=== PATIENT | male | born 1950 | race Caucasian/White ===

== ENCOUNTER → 2016-11-17 | Outpatient (CLI) | payer OTHER | LOC: LAB 09:13 | DX: R23.3 Spontaneous ecchymoses (principal); R25.2 Cramp and spasm ==

== ENCOUNTER → 2019-09-30 | Outpatient (CLI) | payer OTHER ==
[2019-09-30 10:01] LABS: EOS # 0.4 (0.04-0.40); EOS % 4.2 % (0.0-4.0); HEMATOCRIT 47.9 % (42.0-52.0); HEMOGLOBIN 15.9 g/dL (13.5-18.0); LYMPH# 1.6 (1.50-4.00); MEAN CELL VOLUME 94 fl (78-100); MEAN CORPUSCULAR HEMOGLOBIN 31 pg (27-31); MEAN CORPUSCULAR HGB CONC 33 g/dL (33-37); MONO # 0.8 (0.20-0.80); NEU # 5.7 (1.40-6.50); PLATELET COUNT 251 K/mm3 (130-400); WHITE BLOOD COUNT 8.4 K/mm3 (4.8-10.8)
[2019-09-30 10:35] LABS: POTASSIUM 4.4 mmol/L (3.5-5.1)
[2019-09-30 10:36] LABS: CALCIUM 9.4 mg/dL (8.3-10.5)
[2019-09-30 10:38] LABS: TOTAL PROTEIN 7.4 g/dL (6.2-8.1)
[2019-09-30 10:39] LABS: TOTAL BILIRUBIN 0.8 mg/dL (0.2-1.2)
[2019-09-30 10:44] LABS: MAGNESIUM 2.09 mg/dL (1.60-2.60)
[2019-09-30 11:06] LABS: ERYTHROCYTE SEDIMENTATION RATE 1 mm/hr (0-20)
[2019-09-30 20:54] LABS: TESTOSTERONE 413 ng/dL (221-716)
== END ==
LOC: LAB 09:50
PROVIDERS: Internal Medicine
DX: I10 Essential (primary) hypertension (principal); I61.9 Nontraumatic intracerebral hemorrhage, unspecified; K90.9 Intestinal malabsorption, unspecified; N52.9 Male erectile dysfunction, unspecified

== ENCOUNTER → 2019-11-10 | Outpatient (CLI) | payer OTHER | LOC: CARDREHAB 10:49 → CARDLAB 12:46 | DX: G47.10 Hypersomnia, unspecified (principal); G47.33 Obstructive sleep apnea (adult) (pediatric); G47.8 Other sleep disorders | CPT/HCPCS: G0399 ==

== ENCOUNTER → 2020-09-13 | Outpatient (CLI) | payer OTHER ==
[~2020-09-13] MED LIST: ACETAMINOPHEN650 M4 PO; AMLODIPINE BESYL5 MG PO; CLARITIN 1010 MG/TAB PO; FAMOTIDINE40 M1 PO; FLUOXETINE HCL20 MG PO; FLUTICASON0.05 MG/AC NS; LISINOPRIL10 MG PO; NORCO 325 MG-7.1 TA1 PO; ONDANSETRON HYDR4 MG PO; VALIUM 2MG T2 MG/TAB PO
[2020-09-13 15:25] LABS: EOS # 0.3 (0.04-0.40); EOS % 3.8 % (0.0-4.0); HEMATOCRIT 49.7 % (42.0-52.0); LYMPH# 1.9 (1.50-4.00); MEAN CELL VOLUME 95 fl (78-100); MEAN CORPUSCULAR HEMOGLOBIN 31 pg (27-31); MEAN CORPUSCULAR HGB CONC 32 g/dL (33-37); MEAN PLATELET VOLUME 9.1 fl (7.4-10.4); MONO # 0.7 (0.20-0.80); PLATELET COUNT 224 K/mm3 (130-400); RED BLOOD COUNT 5.23 M/mm3 (4.20-5.60); RED CELL DISTRIBUTION WIDTH 14.5 % (11.5-14.5)
[2020-09-13 15:29] LABS: ALBUMIN 3.9 g/dL (3.4-4.8); POTASSIUM 4.1 mmol/L (3.5-5.1)
[2020-09-13 15:32] LABS: TOTAL PROTEIN 7.4 g/dL (6.2-8.1)
[2020-09-13 15:33] LABS: TOTAL BILIRUBIN 0.6 mg/dL (0.2-1.2)
[2020-09-13 15:38] LABS: MAGNESIUM 2.11 mg/dL (1.60-2.60)
[2020-09-13 16:54] LABS: ERYTHROCYTE SEDIMENTATION RATE 10 mm/hr (0-20)
== END ==
LOC: LAB 15:05
PROVIDERS: Internal Medicine
DX: Z12.5 Encounter for screening for malignant neoplasm of prostate (principal); Z12.11 Encounter for screening for malignant neoplasm of colon; I10 Essential (primary) hypertension; K90.9 Intestinal malabsorption, unspecified; E78.2 Mixed hyperlipidemia

== ENCOUNTER → 2020-10-13 | Outpatient (CLI) | payer OTHER | LOC: RAD 15:54 | DX: M79.645 Pain in left finger(s) (principal) ==

== ENCOUNTER → 2020-12-02 | Outpatient (CLI) | payer OTHER | LOC: RAD 16:27 | DX: M17.12 Unilateral primary osteoarthritis, left knee (principal); M11.262 Other chondrocalcinosis, left knee ==

== ENCOUNTER 2021-01-18 11:24 | Emergency (ER) | payer OTHER ==
[2021-01-18 11:58] LABS: BASO # 0.04 (0.02-0.10); EOS # 0.11 (0.04-0.40); EOS % 1.2 % (0.0-4.0); HEMATOCRIT 49.2 % (42.0-52.0); HEMOGLOBIN 16.6 g/dL (13.5-18.0); LYMPH# 1.57 (1.50-4.00); MEAN CELL VOLUME 91 fl (78-100); MEAN CORPUSCULAR HEMOGLOBIN 31 pg (27-31); MEAN CORPUSCULAR HGB CONC 34 g/dL (33-37); MEAN PLATELET VOLUME 9.1 fl (7.4-10.4); MONO # 0.63 (0.20-0.80); NEU # 6.76 (1.40-6.50); PLATELET COUNT 266 K/mm3 (130-400); RED CELL DISTRIBUTION WIDTH 12.9 % (11.5-14.5); WHITE BLOOD COUNT 9.1 K/mm3 (4.8-10.8)
[2021-01-18] MEDS ORDERED: AMLODIPINE BESYL5 MG PO (12:08)
[2021-01-18] MEDS ORDERED: ACETAMINOPHEN650 M4 PO (12:08)
[2021-01-18 12:09] LABS: ALBUMIN 4.1 g/dL (3.4-4.8); POTASSIUM 3.8 mmol/L (3.5-5.1); SODIUM 138 mmol/L (136-145)
[2021-01-18] MEDS ORDERED: VALIUM 2MG T2 MG/TAB PO (12:09)
[2021-01-18] MEDS ORDERED: CLARITIN 1010 MG/TAB PO (12:09)
[2021-01-18 12:10] LABS: CALCIUM 9.6 mg/dL (8.3-10.5)
[2021-01-18 12:11] LABS: GLUCOSE 115 mg/dL (75-110); TOTAL PROTEIN 7.8 g/dL (6.2-8.1)
[2021-01-18 12:12] LABS: CARBON DIOXIDE 19 mmol/L (23-31)
[2021-01-18 12:13] LABS: TOTAL BILIRUBIN 1.1 mg/dL (0.2-1.2)
[2021-01-18] MEDS ORDERED: FAMOTIDINE40 M1 PO (12:15)
[2021-01-18] MEDS ORDERED: FLUTICASON0.05 MG/AC NS (12:16)
[2021-01-18] MEDS ORDERED: FLUOXETINE HCL20 MG PO (12:16)
[2021-01-18 12:17] LABS: AST-SGOT 21 U/L (5-34)
[2021-01-18] MEDS ORDERED: NORCO 325 MG-7.1 TA1 PO (12:17)
[2021-01-18 12:18] LABS: ALT/SGPT 22 U/L (0-55)
[2021-01-18] MEDS ORDERED: ONDANSETRON HYDR4 MG PO (12:18)
[2021-01-18] MEDS ORDERED: LISINOPRIL10 MG PO (12:18)
[2021-01-18 12:28] LABS: TROPONIN-I < 0.03 ng/mL (<0.030)
[2021-01-18 14:47] LABS: URINE APPEARANCE HAZY; URINE COLOR YELLOW; URINE GLUCOSE NEGATIVE (NEGATIVE); URINE KETONE 1+ (NEGATIVE); URINE PROTEIN(semi-quant) NEGATIVE (NEGATIVE)
[2021-01-18 14:48] LABS: URINE BILIRUBIN 2+ (NEGATIVE); URINE BLOOD NEGATIVE (NEGATIVE); URINE LEUKOCYTE ESTERASE TRACE (NEGATIVE); URINE NITRATE NEGATIVE (NEGATIVE); URINE UROBILINOGEN NORMAL (NORMAL); URINE WBC 0-1 /hpf (0-3)
[2021-01-18 15:27] VITALS: BP 145/93
== END 2021-01-18 15:38 | disposition home or self-care (01) ==
LOC: ED 11:24
PROVIDERS: Physician Assistant
DX: F41.9 Anxiety disorder, unspecified (principal); F32.9 Major depressive disorder, single episode, unspecified; K21.9 Gastro-esophageal reflux disease without esophagitis; Z79.899 Other long term (current) drug therapy

== ENCOUNTER → 2021-01-25 | Outpatient (CLI) | payer OTHER | LOC: RAD 08:18 | DX: G46.3 Brain stem stroke syndrome (principal); G31.9 Degenerative disease of nervous system, unspecified | CPT/HCPCS: A9585 ==

== ENCOUNTER → 2021-03-28 | Outpatient (CLI) | payer OTHER | LOC: LAB 12:51 | DX: Z01.818 Encounter for other preprocedural examination (principal); Z20.822 Contact with and (suspected) exposure to COVID-19 ==

== ENCOUNTER → 2021-07-06 | Outpatient (CLI) | payer OTHER | LOC: LAB 19:43 | DX: U07.1 COVID-19 (principal) ==

== ENCOUNTER 2021-09-23 08:32 | Emergency (ER) | payer OTHER ==
[~2021-09-23] VITALS: Ht 195.6 cm; Wt 108.3 kg
[2021-09-23] MEDS ORDERED: TOPROL XL 50MG50 MG PO (08:57)
[2021-09-23] MEDS ORDERED: ZYRTEC ALLERGY10 MG PO (08:58)
[2021-09-23] MEDS ORDERED: CELEBREX 200MG200 MG PO (09:01)
[2021-09-23 09:22] LABS: BASO # 0.03 K/mm3 (0.02-0.10); EOS # 0.17 K/mm3 (0.04-0.40); EOS % 1.6 % (0.0-4.0); HEMATOCRIT 46.7 % (42.0-52.0); HEMOGLOBIN 15.3 g/dL (13.5-18.0); LYMPH# 2.17 K/mm3 (1.50-4.00); MEAN CELL VOLUME 92 fl (78-100); MEAN CORPUSCULAR HEMOGLOBIN 30 pg (27-31); MEAN CORPUSCULAR HGB CONC 33 g/dL (33-37); MEAN PLATELET VOLUME 9.1 fl (7.4-10.4); MONO # 1.11 K/mm3 (0.20-0.80); PLATELET COUNT 264 K/mm3 (130-400); RED BLOOD COUNT 5.06 M/mm3 (4.20-5.60); RED CELL DISTRIBUTION WIDTH 15.8 % (11.5-14.5); WHITE BLOOD COUNT 10.8 K/mm3 (4.8-10.8)
[2021-09-23 09:25] LABS: ALBUMIN 3.8 g/dL (3.4-4.8)
[2021-09-23 09:27] LABS: CALCIUM 9.1 mg/dL (8.3-10.5)
[2021-09-23 09:28] LABS: TOTAL PROTEIN 7.1 g/dL (6.2-8.1)
[2021-09-23 09:30] LABS: TOTAL BILIRUBIN 0.9 mg/dL (0.2-1.2)
[2021-09-23 11:52] VITALS: BP 164/102
== END 2021-09-23 12:02 | disposition home or self-care (01) ==
LOC: ED 08:32
PROVIDERS: Nurse Practitioner
DX: I10 Essential (primary) hypertension (principal); F41.9 Anxiety disorder, unspecified; F32.9 Major depressive disorder, single episode, unspecified; R53.81 Other malaise; E66.9 Obesity, unspecified; Z68.28 Body mass index [BMI] 28.0-28.9, adult; Z86.16 Personal history of COVID-19

== ENCOUNTER → 2021-11-14 | Outpatient (CLI) | payer OTHER ==
[~2021-11-14] MED LIST changes: +CELEBREX 200MG200 MG PO; +TOPROL XL 50MG50 MG PO; +ZYRTEC ALLERGY10 MG PO
[2021-11-14 15:00] LABS: BASO # 0.04 K/mm3 (0.02-0.10); EOS # 0.14 K/mm3 (0.04-0.40); EOS % 1.5 % (0.0-4.0); HEMATOCRIT 48.5 % (42.0-52.0); HEMOGLOBIN 16.4 g/dL (13.5-18.0); LYMPH# 2.27 K/mm3 (1.50-4.00); MEAN CELL VOLUME 93 fl (78-100); MEAN CORPUSCULAR HEMOGLOBIN 31 pg (27-31); MEAN CORPUSCULAR HGB CONC 34 g/dL (33-37); MEAN PLATELET VOLUME 9.2 fl (7.4-10.4); MONO # 0.65 K/mm3 (0.20-0.80); NEU # 6.05 K/mm3 (1.40-6.50); PLATELET COUNT 246 K/mm3 (130-400); RED BLOOD COUNT 5.23 M/mm3 (4.20-5.60); RED CELL DISTRIBUTION WIDTH 13.2 % (11.5-14.5); WHITE BLOOD COUNT 9.2 K/mm3 (4.8-10.8)
[2021-11-14 15:04] LABS: ALBUMIN 4.1 g/dL (3.4-4.8); POTASSIUM 4.1 mmol/L (3.5-5.1)
[2021-11-14 15:05] LABS: CALCIUM 9.7 mg/dL (8.3-10.5)
[2021-11-14 15:06] LABS: TOTAL PROTEIN 7.4 g/dL (6.2-8.1)
[2021-11-14 15:08] LABS: TOTAL BILIRUBIN 0.7 mg/dL (0.2-1.2)
[2021-11-14 15:13] LABS: MAGNESIUM 2.16 mg/dL (1.60-2.60)
[2021-11-15 19:52] LABS: TESTOSTERONE 612 ng/dL (221-716)
== END ==
LOC: LAB 14:06
PROVIDERS: Internal Medicine
DX: U07.1 COVID-19 (principal); L60.0 Ingrowing nail; F32.1 Major depressive disorder, single episode, moderate; I10 Essential (primary) hypertension; F41.0 Panic disorder [episodic paroxysmal anxiety]; E55.9 Vitamin D deficiency, unspecified; M17.12 Unilateral primary osteoarthritis, left knee; K90.9 Intestinal malabsorption, unspecified; F52.21 Male erectile disorder

== ENCOUNTER → 2022-01-16 | Outpatient (CLI) | payer OTHER | LOC: RAD 12:31 | DX: J02.9 Acute pharyngitis, unspecified (principal); R05.1 Acute cough; R09.89 Other specified symptoms and signs involving the circulatory and respiratory systems; Z20.822 Contact with and (suspected) exposure to COVID-19 ==

== ENCOUNTER → 2023-06-12 | Outpatient (CLI) | payer OTHER | LOC: RAD 08:37 | DX: Z01.89 Encounter for other specified special examinations (principal); G93.89 Other specified disorders of brain; G46.3 Brain stem stroke syndrome; M48.02 Spinal stenosis, cervical region; M47.16 Other spondylosis with myelopathy, lumbar region; M50.01 Cervical disc disorder with myelopathy, high cervical region; M50.023 Cervical disc disorder at C6-C7 level with myelopathy ==

== ENCOUNTER → 2023-06-14 | Outpatient (CLI) | payer OTHER | LOC: RAD 10:48 | DX: I65.23 Occlusion and stenosis of bilateral carotid arteries (principal); G46.3 Brain stem stroke syndrome ==

== ENCOUNTER → 2023-07-03 | Outpatient (CLI) | payer OTHER | LOC: RAD 10:49 | DX: M47.16 Other spondylosis with myelopathy, lumbar region (principal); M51.06 Intervertebral disc disorders with myelopathy, lumbar region; M43.16 Spondylolisthesis, lumbar region ==

== ENCOUNTER → 2023-08-07 | Outpatient (CLI) | payer OTHER | LOC: RAD 08:53 | DX: M16.0 Bilateral primary osteoarthritis of hip (principal) ==

== ENCOUNTER → 2024-01-22 | Outpatient (CLI) | payer OTHER ==
[~2024-01-22] MED LIST changes: +ESCITALOPRAM10 MG PO
== END ==
LOC: RAD 09:12
DX: G81.91 Hemiplegia, unspecified affecting right dominant side (principal)

== ENCOUNTER 2024-03-20 14:42 | Emergency (ER) | payer OTHER ==
[~2024-03-20] VITALS: Ht 195.6 cm; Wt 107.7 kg
[2024-03-20 15:07] LABS: BASO # 0.03 K/mm3 (0.02-0.10); EOS # 0.25 K/mm3 (0.04-0.40); HEMOGLOBIN 15.3 g/dL (13.5-18.0); LYMPH# 2.04 K/mm3 (1.50-4.00); MEAN CELL VOLUME 90 fl (78-100); MEAN CORPUSCULAR HEMOGLOBIN 31 pg (27-31); MEAN CORPUSCULAR HGB CONC 34 g/dL (33-37); MEAN PLATELET VOLUME 8.7 fl (7.4-10.4); MONO # 0.93 K/mm3 (0.20-0.80); NEU # 9.14 K/mm3 (1.40-6.50); PLATELET COUNT 236 K/mm3 (130-400); RED BLOOD COUNT 4.99 M/mm3 (4.20-5.60); RED CELL DISTRIBUTION WIDTH 13.7 % (11.5-14.5); WHITE BLOOD COUNT 12.5 K/mm3 (4.8-10.8)
[2024-03-20 15:12] LABS: ALBUMIN 3.9 g/dL (3.4-4.8)
[2024-03-20 15:13] LABS: CALCIUM 9.7 mg/dL (8.3-10.5)
[2024-03-20 15:15] LABS: TOTAL PROTEIN 7.1 g/dL (6.2-8.1)
[2024-03-20 15:16] LABS: TOTAL BILIRUBIN 0.7 mg/dL (0.2-1.2)
[2024-03-20] MEDS ORDERED: NS 1,000 ML IV SCH (15:30)
[2024-03-20] MEDS ORDERED: HYDROCHLOROTH12.5 M2 PO (15:52)
[2024-03-20 16:02] LABS: PH-URINE 8.5 (5.0 - 8.0); URINE APPEARANCE CLEAR (CLEAR); URINE BILIRUBIN NEGATIVE (NEGATIVE); URINE BLOOD NEGATIVE (NEGATIVE); URINE COLOR YELLOW (YELLOW); URINE GLUCOSE NEGATIVE (NEGATIVE); URINE KETONE NEGATIVE (NEGATIVE); URINE LEUKOCYTE ESTERASE NEGATIVE (NEGATIVE); URINE NITRATE NEGATIVE (NEGATIVE); URINE PROTEIN(semi-quant) NEGATIVE (NEGATIVE); URINE WBC 0-1 /hpf (0-3)
[2024-03-20 17:01] VITALS: BP 140/90
== END 2024-03-20 17:04 | disposition home or self-care (01) ==
LOC: ED 14:42
PROVIDERS: Nurse Practitioner
DX: H81.4 Vertigo of central origin (principal); I10 Essential (primary) hypertension; E66.9 Obesity, unspecified; Z79.899 Other long term (current) drug therapy; Z79.82 Long term (current) use of aspirin; Z82.3 Family history of stroke
CPT/HCPCS: J7030